=== PATIENT | female | born 1995 | race Two or more races ===

== ENCOUNTER 2018-08-05 12:47 | Emergency (ER) | payer OTHER ==
[2018-08-05] MEDS ORDERED: DEXTROSE 5%-NORMAL SALINE 1,000 ML IV ONE (13:41)
--- NOTE | 2018-08-05 13:43 | ER Document Report ---
ED General - General Chief Complaint: OB Problem (<20wks) Stated Complaint: ABDOMINAL PAIN Time Seen by Provider: 08/05/18 13:25 Mode of Arrival: Ambulatory Information source: Patient Notes: 23-year-old female 4 para 1 (history of 1 TOPV, 1 miscarriage), currently 15 weeks with twin gestations. Patient recently relocated from [facility]. She has been seen in the women's health clinic last week. She presents to the emergency room with contractions and cramping on and off since last night. She does report nausea without vomiting. She denies any fever, abdominal pain, burning on urination or recent illness. She is on no medicines and has no allergies. TRAVEL OUTSIDE OF THE [place] IN LAST 30 DAYS: No - HPI Onset: Yesterday Onset/Duration: Gradual Quality of pain: No pain Severity: None Pain Level: Denies Associated symptoms: denies: Chest pain, Fever, Shortness of breath Exacerbated by: Denies Relieved by: Denies Similar symptoms previously: No Recently seen / treated by doctor: Yes - Related Data Allergies/Adverse Reactions: No Known Allergies Allergy (Unverified 08/05/18 12:51) Past Medical History - General Information source: Patient - Social History Smoking Status: Never Smoker Cigarette use (# per day): No Chew tobacco use (# tins/day): No Frequency of alcohol use: None Drug Abuse: None Lives with: Family Family History: None Patient has suicidal ideation: No Patient has homicidal ideation: No - Medical History Medical History: Negative Renal/ Medical History: Denies: Hx Peritoneal Dialysis Surgical Hx: Negative Review of Systems - Review of Systems Constitutional: denies: Chills, Fever EENT: No symptoms reported Cardiovascular: No symptoms reported. denies: Chest pain, Palpitations, Heart racing Respiratory: No symptoms reported Gastrointestinal: No symptoms reported Genitourinary: No symptoms reported Female Genitourinary: See HPI. denies: Vaginal discharge, Vaginal bleeding Musculoskeletal: No symptoms reported Skin: No symptoms reported Hematologic/Lymphatic: No symptoms reported Neurological/Psychological: No symptoms reported Physical Exam - Vital signs Vitals: Temp Pulse Resp BP Pulse Ox 98.0 F 107 H 14 116/68 97 08/05/18 12:54 08/05/18 12:54 08/05/18 12:54 08/05/18 12:54 08/05/18 12:54 Notes: Physical exam: GENERAL: Is alert and oriented x3, no acute distress HEAD: Atraumatic, normocephalic. EYES: Pupils equal round and reactive to light, extraocular movements intact, sclera anicteric, conjunctiva are normal. ENT: TMs normal, nares patent, oropharynx clear without exudates. Moist mucous membranes. NECK: Normal range of motion, supple without obvious mass or JVD. LUNGS: Breath sounds clear to auscultation bilaterally and equal. No wheezes rales or rhonchi. HEART: Regular rate and rhythm without murmurs, rubs or gallops. ABDOMEN: Soft, normoactive bowel sounds. Patient is consistent with 15 weeks gestation approximately. No tenderness to palpation. No guarding, no rebound. No masses appreciated. EXTREMITIES: Normal range of motion, no pitting or edema. No clubbing or cyanosis. NEUROLOGICAL: Cranial nerves II through XII grossly intact. Normal speech, moving all extremities. PSYCH: Normal mood, normal affect. SKIN: Warm, Dry, normal turgor, no rashes or lesions noted. Course - Re-evaluation Re-evalutation: 08/05/18 15:56 OB ultrasound shows twin viable gestations at approximately 15 weeks. heart tones to both gestations is good. Cervix is closed with a cervical length of 3.5 cm. Patient has not had any vaginal bleeding. She looks good on exam. She states she continues with contractions. I discussed the case with Dr. Harmon who commended no heavy lifting, taking it easy, no sex and to follow- up in the office. - Vital Signs Vital signs: Temp Pulse Resp BP Pulse Ox 98.5 F 84 12 105/57 L 100 08/05/18 16:38 08/05/18 16:38 08/05/18 16:38 08/05/18 16:38 08/05/18 16:38 - Laboratory Result Diagrams: 08/05/18 14:11 08/05/18 14:11 Laboratory results interpreted by me: 08/05/18 08/05/18 08/05/18 14:02 14:11 14:11 WBC 10.6 H Sodium 136.7 L BUN 4 L Creatinine 0.48 L Beta HCG, Quant 903244.00 H Ur Leukocyte Esterase MODERATE H - Diagnostic Test Radiology reviewed: Image reviewed, Reports reviewed - OB ultrasound shows twin gestations that are viable at 15 weeks gestation. heart beats are 157 and 160 respectively. Cervix is closed with a cervical length of 3.5 cm Discharge - Discharge Clinical Impression: Twin pregnancies, Contractions Condition: Stable Disposition: HOME, SELF-CARE Additional Instructions: As we discussed, your blood pressure and labs look good. The urine analysis showed no infection. The ultrasound showed twin gestations with a good heartbeat at 15 weeks gestation. At this point, I would recommend no intercourse, heavy lifting or strenuous activity. Drink plenty of fluids (stay well-hydrated). I would call the OB clinic tomorrow for follow-up in a day or 2. I did discuss the ultrasound report and your symptoms with the on-call OB doctor from the woman's health clinic (Dr. Harmon). They will be able to see the ultrasound. Return to the emergency room for any vaginal bleeding, worsening contractions or pain.
[2018-08-05 14:31] LABS: APPEARANCE,URINE SLIGHTLY-CLOUDY; BILIRUBIN,URINE NEGATIVE (NEGATIVE); COLOR,URINE YELLOW; GLUCOSE, URINE NEGATIVE (NEGATIVE); KETONES,URINE NEGATIVE (NEGATIVE); LEUKOCYTE ESTERASE,URINE MODERATE (NEGATIVE); NITRITE,URINE NEGATIVE (NEGATIVE); PROTEIN,URINE NEGATIVE (NEGATIVE); URINE SPECIFIC GRAVITY 1.015; UROBILINOGEN,URINE NEGATIVE mg/dL (<2.0)
[2018-08-05 14:36] LABS: ABSOLUTE EOSINOPHILS # (AUTO) 0.2 10^3/uL (0.0-0.6); ABSOLUTE LYMPHOCYTES (AUTO) 2.3 10^3/uL (0.5-4.7); ABSOLUTE MONOCYTES (AUTO) 0.5 10^3/uL (0.1-1.4); ABSOLUTE NEUT (AUTO) 7.5 10^3/uL (1.7-8.2); BASOPHILS % (AUTO) 0.3 % (0-2); EOSINOPHILS % (AUTO) 1.8 % (0-6); HEMATOCRIT 36.9 % (36.0-47.0); HEMOGLOBIN 13.1 g/dL (12.0-15.5); MEAN CORPUSCULAR HEMOGLOBIN 30.5 pg (27.0-33.4); MEAN CORPUSCULAR HGB CONC 35.6 g/dL (32.0-36.0); MEAN CORPUSCULAR VOLUME 86 fl (80-97); PLATELET COUNT 341 10^3/uL (150-450); RED CELL DISTRIBUTION WIDTH 13.4 % (11.5-14.0); SEGMENTED NEUTROPHILS % (AUTO) 70.9 % (42-78); TOTAL CELLS COUNTED % (AUTO) 100 %; WHITE BLOOD COUNT 10.6 10^3/uL (4.0-10.5)
[2018-08-05 15:03] LABS: ALANINE AMINOTRANSFERASE 28 U/L (9-52); ALBUMIN 3.6 g/dL (3.5-5.0); ALKALINE PHOSPHATASE 77 U/L (38-126); ANION GAP 11 (5-19); ASPARTATE AMINO TRANSFERASE 17 U/L (14-36); BILIRUBIN,DIRECT 0.1 mg/dL (0.0-0.4); BILIRUBIN,TOTAL 0.3 mg/dL (0.2-1.3); BLOOD UREA NITROGEN 4 mg/dL (7-20); CALCIUM 9.3 mg/dL (8.4-10.2); CARBON DIOXIDE 22 mmol/L (22-30); CHLORIDE 104 mmol/L (98-107); GLUCOSE 82 mg/dL (75-110); SODIUM 136.7 mmol/L (137-145); TOTAL PROTEIN 6.7 g/dL (6.3-8.2)
--- NOTE | 2018-08-05 15:18 | RADIOLOGY REPORT (SQ) ---
EXAM DESCRIPTION: U/S OB 14+ TRNABD 1GES W/O DOP COMPLETED DATE/TIME: 08/05/2018 2:47 pm REASON FOR STUDY: abd cramping-h/o twin gest 15 weeks COMPARISON: None. TECHNIQUE: Static and Dynamic grayscale imaging performed of gravid uterus using transabdominal appr oach. Additional selected color Doppler and spectral images recorded. All stored on PACS. LIMITATIONS: None. FINDINGS: FETUSES SEEN:Twin , mono chorionic, mono amniotic. No membrane between the fetus es seen. FETUS A: EGA: 15 weeks 0 days by multiple measurements today. Calculated using BPD,FL,HC,AC documented on eva ges. Last menses reported by the patient 02/27/2018, this is discrepant with the measurements today. DAMIEN: By ultrasound, 01/27/2019 EFW: Not calculated PERCENTILE: Not calculated SHRUTHI: Adequate PLACENTA: Posterior grade 1 PRESENTATION: Variable HEART RATE: 160 beats per minute. FOUR CHAMBER HEART: Not well seen THREE VESSEL CORD: Not well seen CORD INSERTION: Not well seen KIDNEYS AND BLADDER: Not well seen STOMACH: Not well seen SPINE: Not well seen BRAIN AND LATERAL VENTRICLES: Visualized. Appear normal. OTHER: No other significant finding. FETUS B: EGA: 15 weeks 6 days by multiple measurements today Calculated using BPD,FL,HC,AC documented on image s. Last menses reported by the patient 02/27/2018, this is discrepant with the measurements today DAMIEN: By ultrasound, 01/21/2019 EFW: Not calculated PERCENTILE: Not calculated SHRUTHI: Adequate PLACENTA: Posterior grade 1 PRESENTATION: Variable HEART RATE: 157 beats per minute. FOUR CHAMBER HEART: Not well seen THREE VESSEL CORD: Not well seen CORD INSERTION: Not well seen KIDNEYS AND BLADDER: Not well seen STOMACH: Not well seen SPINE: Not well seen BRAIN AND LATERAL VENTRICLES: Visualized. Appear normal. OTHER: No other significant finding. MATERNAL ADNEXA: Maternal ovaries not visualized. CERVICAL LENGTH: 3.5 cm Closed. OTHER: No other significant finding. IMPRESSION: LIVING INTRAUTERINE . MONOCHORIONIC MONOAMNIOTIC TWIN ESTIMATED GESTATIONAL AGE 15 WEEKS 6 DAYS LIMITED ANATOMIC SURVEY OF THE FETUSES. DETAILED ANATOMIC SURVEY RECOMMENDED SOMETIME LATER IN THE 2 ND TRIMESTER Trimester of : Second trimester - 13 weeks 1 day to 27 weeks 6 days. TECHNICAL DOCUMENTATION: JOB ID: [id number] [employer]- All Rights Reserved Reading location - IP/workstation name: [email or web address]
[2018-08-05 16:39] VITALS: BP 105/57
== END 2018-08-05 16:39 | disposition home or self-care (01) ==
LOC: ER 12:47
DX: O26.892 Other specified pregnancy related conditions, second trimester (principal); R10.9 Unspecified abdominal pain; R11.0 Nausea; O30.012 Twin pregnancy, monochorionic/monoamniotic, second trimester; Z3A.15 15 weeks gestation of pregnancy
CPT/HCPCS: 36415; 76805; 80053; 81001; 84702; 85025; 96360; 99284